=== PATIENT | female | born 1990 | race Caucasian/White ===

== ENCOUNTER 2016-06-11 23:50 | Emergency (ER) | payer OTHER ==
[2016-06-12] MEDS ORDERED: OXYCODONE-ACETAMINOPHEN 5-325 MG TABLET PO ONE (01:19)
[2016-06-12] MEDS ORDERED: IBUPROFEN 600 MG TABLET PO ONE (01:19)
[2016-06-12] MEDS ORDERED: HYDROCODONE/ACETAMINOPHEN 5-325 MG 6 TAB/DSPK PO PRN (02:28)
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
[2016-06-12 03:37] VITALS: BP 102/75
== END 2016-06-12 03:14 | disposition home or self-care (01) ==
LOC: ER 23:50
DX: M25.512 Pain in left shoulder (principal); V87.7XXA Person injured in collision between other specified motor vehicles (traffic), initial encounter; F17.210 Nicotine dependence, cigarettes, uncomplicated
CPT/HCPCS: 99283